=== PATIENT | male | born 1950 | race Caucasian/White ===

== ENCOUNTER 2021-05-28 02:43 | Outpatient (CLI) | payer MEDICARE, SELFPAY ==
[2021-05-28 22:49] LABS: PSA, Diagnostic 5.2 ng/mL (0.0-4.5)
== END 2021-05-28 02:44 | disposition home or self-care (01) ==
LOC: LBO 03:48
PROVIDERS: PCP Family Medicine; Visit Provider Nurse Practitioner Gerontology
DX: R97.20 Elevated prostate specific antigen [PSA] (principal); N13.8 Other obstructive and reflux uropathy; N40.1 Benign prostatic hyperplasia with lower urinary tract symptoms
CPT/HCPCS: 36415; 84153

== ENCOUNTER → 2021-06-10 09:49 | Outpatient (BNVA) | payer MEDICARE, SELFPAY | PROVIDERS: PCP Family Medicine; Referring Provider Family Medicine; Visit Provider Nurse Practitioner Gerontology | DX: N40.1 Benign prostatic hyperplasia with lower urinary tract symptoms (principal); N13.8 Other obstructive and reflux uropathy; R97.20 Elevated prostate specific antigen [PSA] | CPT/HCPCS: 99214 ==

== ENCOUNTER → 2021-10-07 12:53 | Outpatient (BNVA) | payer MEDICARE, SELFPAY | PROVIDERS: PCP Family Medicine; Referring Provider Family Medicine; Visit Provider Nurse Practitioner Gerontology | DX: N40.1 Benign prostatic hyperplasia with lower urinary tract symptoms (principal); N13.8 Other obstructive and reflux uropathy; R97.20 Elevated prostate specific antigen [PSA] | CPT/HCPCS: 99214 ==

== ENCOUNTER 2022-01-03 01:56 | Outpatient (CLI) | payer MEDICARE, SELFPAY ==
[2022-01-03 21:53] LABS: PSA, Screening 7.9 ng/mL (0.0-4.5)
== END 2022-01-03 01:57 | disposition home or self-care (01) ==
LOC: LBO 01:57
PROVIDERS: PCP Family Medicine; Visit Provider Nurse Practitioner Gerontology
DX: R97.20 Elevated prostate specific antigen [PSA] (principal); Z12.5 Encounter for screening for malignant neoplasm of prostate
CPT/HCPCS: 36415; 84153

== ENCOUNTER → 2022-01-06 10:41 | Outpatient (BNVA) | payer MEDICARE, SELFPAY | PROVIDERS: PCP Family Medicine; Referring Provider Family Medicine; Visit Provider Nurse Practitioner Gerontology | DX: N40.2 Nodular prostate without lower urinary tract symptoms (principal); N40.1 Benign prostatic hyperplasia with lower urinary tract symptoms; N13.8 Other obstructive and reflux uropathy; R97.20 Elevated prostate specific antigen [PSA] | CPT/HCPCS: 99214 ==

== ENCOUNTER → 2022-02-15 12:49 | Outpatient (BNVA) | payer MEDICARE, SELFPAY | PROVIDERS: PCP Family Medicine; Referring Provider Family Medicine; Visit Provider Nurse Practitioner Gerontology | DX: N40.1 Benign prostatic hyperplasia with lower urinary tract symptoms (principal); N13.8 Other obstructive and reflux uropathy; R97.20 Elevated prostate specific antigen [PSA] | CPT/HCPCS: 99214 ==

== ENCOUNTER 2022-08-01 02:56 | Outpatient (CLI) | payer MEDICARE, SELFPAY ==
[2022-08-01 18:40] LABS: PSA, Diagnostic 5.9 ng/mL (<=6.5)
== END 2022-08-01 02:57 | disposition home or self-care (01) ==
LOC: LBO 02:56
PROVIDERS: PCP Family Medicine; Visit Provider Nurse Practitioner Gerontology
DX: R97.20 Elevated prostate specific antigen [PSA] (principal)
CPT/HCPCS: 36415; 84153

== ENCOUNTER → 2022-08-08 14:17 | Outpatient (BNVA) | payer MEDICARE, SELFPAY | PROVIDERS: PCP Family Medicine; Referring Provider Family Medicine; Visit Provider Nurse Practitioner Gerontology | DX: N40.1 Benign prostatic hyperplasia with lower urinary tract symptoms (principal); N40.2 Nodular prostate without lower urinary tract symptoms; N13.8 Other obstructive and reflux uropathy; R97.20 Elevated prostate specific antigen [PSA] | CPT/HCPCS: 99214 ==

== ENCOUNTER 2023-01-30 01:27 | Outpatient (CLI) | payer MEDICARE, SELFPAY ==
[2023-01-30 18:07] LABS: PSA, Diagnostic 7.4 ng/mL (<=6.5)
== END 2023-01-30 01:28 | disposition home or self-care (01) ==
LOC: LBO 01:27
PROVIDERS: PCP Family Medicine; Visit Provider Nurse Practitioner Gerontology
DX: N13.8 Other obstructive and reflux uropathy (principal); N40.1 Benign prostatic hyperplasia with lower urinary tract symptoms; N40.2 Nodular prostate without lower urinary tract symptoms; R97.20 Elevated prostate specific antigen [PSA]
CPT/HCPCS: 36415; 84153

== ENCOUNTER → 2023-02-06 14:04 | Outpatient (BNVA) | payer MEDICARE, SELFPAY | PROVIDERS: PCP Family Medicine; Visit Provider Nurse Practitioner Gerontology | DX: N40.1 Benign prostatic hyperplasia with lower urinary tract symptoms (principal); N40.2 Nodular prostate without lower urinary tract symptoms; N13.8 Other obstructive and reflux uropathy | CPT/HCPCS: 51798; 99213 ==

== ENCOUNTER 2023-08-01 02:48 | Outpatient (CLI) | payer MEDICARE, SELFPAY ==
[2023-08-01 21:07] LABS: PSA, Diagnostic 4.4 ng/mL (<=6.5)
== END 2023-08-01 02:49 | disposition home or self-care (01) ==
LOC: LBO 02:48
PROVIDERS: PCP Family Medicine; Visit Provider Nurse Practitioner Gerontology
DX: N13.8 Other obstructive and reflux uropathy (principal); N40.1 Benign prostatic hyperplasia with lower urinary tract symptoms; R97.20 Elevated prostate specific antigen [PSA]
CPT/HCPCS: 36415; 84153

== ENCOUNTER → 2023-08-08 08:06 | Outpatient (BNVA) | payer MEDICARE, SELFPAY | PROVIDERS: PCP Family Medicine; Visit Provider Nurse Practitioner Gerontology | DX: N40.2 Nodular prostate without lower urinary tract symptoms (principal); R97.20 Elevated prostate specific antigen [PSA]; N40.1 Benign prostatic hyperplasia with lower urinary tract symptoms; N13.8 Other obstructive and reflux uropathy | CPT/HCPCS: 99213 ==

== ENCOUNTER 2024-01-30 04:31 | Outpatient (CLI) | payer MEDICARE, SELFPAY ==
[2024-01-30 18:26] LABS: PSA, Diagnostic 5.6 ng/mL (<=6.5)
== END 2024-01-30 04:32 | disposition home or self-care (01) ==
LOC: LBO 04:32
PROVIDERS: PCP Family Medicine; Visit Provider Nurse Practitioner Gerontology
DX: R97.20 Elevated prostate specific antigen [PSA]; N13.8 Other obstructive and reflux uropathy
CPT/HCPCS: 36415; 84153

== ENCOUNTER → 2024-02-06 08:05 | Outpatient (BNVA) | payer MEDICARE, SELFPAY | PROVIDERS: PCP Family Medicine; Visit Provider Nurse Practitioner Gerontology | DX: N40.1 Benign prostatic hyperplasia with lower urinary tract symptoms (principal); N13.8 Other obstructive and reflux uropathy; R97.20 Elevated prostate specific antigen [PSA] | CPT/HCPCS: 51798; 99213 ==

== ENCOUNTER 2024-02-08 04:50 | Outpatient (CLI) | payer MEDICARE, SELFPAY ==
[2024-02-08 09:30] LABS: Abs Immature Grans 0.01 10^3/uL (0.0-0.06); Absolute Basophil Count 0.02 10^3/uL (0.0-0.2); Absolute Eosinophil Count 0.08 10^3/uL (0.0-0.7); Absolute Lymphocyte Count 0.84 10^3/uL (1.2-3.4); Absolute Monocyte Count 0.33 10^3/uL (0.1-0.8); Absolute Neutrophil Count 2.33 10^3/uL (1.2-6.7); Basophils % 0.6; Eosinophils % 2.2; HCT 48.6 % (40.0-50.0); HGB 16.5 g/dL (13.5-17.5); Immature Grans % 0.3; Lymphocytes % 23.3; MCH 29.4 pg (27.0-33.0); MCV 87 fL (80-95); MPV 10.2 fL (8.0-11.0); Monocytes % 9.1; Neutrophils % 64.5; Platelet Count 157 10^3/uL (130-400); RBC 5.61 10^6/uL (4.36-5.78); RDW 12.3 % (11.8-14.1); RDW-SD 39.3 fL; WBC 3.61 10^3/uL (4.4-10.8)
[2024-02-08 10:21] LABS: Anion Gap 10.7 mmol/L (3-11); BUN 16 mg/dL (7-18); CO2 27.3 mmol/L (21.0-32.0); Calcium 9.6 mg/dL (8.5-10.1); Chloride 107 mmol/L (98-107); Estimated GFR 80.47 (mL/min/1.73m2); Glucose 113 mg/dL (74-106); Sodium 145 mmol/L (136-145)
== END 2024-02-08 04:51 | disposition home or self-care (01) ==
PROVIDERS: PCP Family Medicine; Visit Provider Orthopaedic Surgery
DX: M16.11 Unilateral primary osteoarthritis, right hip (principal)
CPT/HCPCS: 36415; 80048; 86850; 86900; 86901; 82040; 84153; 85025

== ENCOUNTER 2024-07-30 03:02 | Outpatient (CLI) | payer MEDICARE, SELFPAY ==
[2024-07-30 21:26] LABS: PSA, Diagnostic 7.5 ng/mL (<=6.5)
== END 2024-07-30 03:03 | disposition home or self-care (01) ==
LOC: LBO 03:02
PROVIDERS: PCP Family Medicine; Visit Provider Nurse Practitioner Gerontology
DX: N40.2 Nodular prostate without lower urinary tract symptoms (principal); R97.20 Elevated prostate specific antigen [PSA]; N40.1 Benign prostatic hyperplasia with lower urinary tract symptoms; N13.8 Other obstructive and reflux uropathy
CPT/HCPCS: 36415; 84153

== ENCOUNTER → 2024-08-06 08:04 | Outpatient (BNVA) | payer MEDICARE, SELFPAY | PROVIDERS: PCP Family Medicine; Visit Provider Nurse Practitioner Gerontology | DX: N40.2 Nodular prostate without lower urinary tract symptoms (principal); R97.20 Elevated prostate specific antigen [PSA]; N40.1 Benign prostatic hyperplasia with lower urinary tract symptoms; N13.8 Other obstructive and reflux uropathy; R39.9 Unspecified symptoms and signs involving the genitourinary system | CPT/HCPCS: 51798; 99213 ==

== ENCOUNTER → 2024-11-04 08:13 | Outpatient (BNVA) | payer MEDICARE, SELFPAY | PROVIDERS: PCP Family Medicine; Referring Provider Family Medicine; Visit Provider Nurse Practitioner Gerontology | DX: N40.1 Benign prostatic hyperplasia with lower urinary tract symptoms (principal); N40.2 Nodular prostate without lower urinary tract symptoms; N13.8 Other obstructive and reflux uropathy | CPT/HCPCS: 51798; 99213 ==

== ENCOUNTER 2025-01-29 01:59 | Outpatient (CLI) | payer MEDICARE, SELFPAY ==
[2025-01-29 18:33] LABS: PSA, Diagnostic 5.5 ng/mL (<=6.5)
== END 2025-01-29 02:00 | disposition home or self-care (01) ==
LOC: LBO 02:00
PROVIDERS: PCP Family Medicine; Visit Provider Nurse Practitioner Gerontology
DX: N40.2 Nodular prostate without lower urinary tract symptoms (principal); R97.20 Elevated prostate specific antigen [PSA]; N40.1 Benign prostatic hyperplasia with lower urinary tract symptoms; N13.8 Other obstructive and reflux uropathy
CPT/HCPCS: 36415; 84153

== ENCOUNTER → 2025-02-05 08:37 | Outpatient (BNVA) | payer MEDICARE, SELFPAY | PROVIDERS: PCP Family Medicine; Visit Provider Nurse Practitioner Gerontology | DX: N40.1 Benign prostatic hyperplasia with lower urinary tract symptoms (principal); N13.8 Other obstructive and reflux uropathy; R97.20 Elevated prostate specific antigen [PSA]; N40.2 Nodular prostate without lower urinary tract symptoms; Z84.2 Family history of other diseases of the genitourinary system | CPT/HCPCS: 99214 ==

== ENCOUNTER 2025-07-30 03:45 | Outpatient (CLI) | payer MEDICARE, SELFPAY ==
[2025-07-30 19:07] LABS: PSA, Diagnostic 5.3 ng/mL (<=6.5)
== END 2025-07-30 03:46 | disposition home or self-care (01) ==
LOC: LBO 03:48
PROVIDERS: PCP Family Medicine; Visit Provider Nurse Practitioner Gerontology
DX: N40.2 Nodular prostate without lower urinary tract symptoms (principal); R97.20 Elevated prostate specific antigen [PSA]; N40.1 Benign prostatic hyperplasia with lower urinary tract symptoms; N13.8 Other obstructive and reflux uropathy
CPT/HCPCS: 36415; 84153

== ENCOUNTER → 2025-08-06 08:36 | Outpatient (BNVA) | payer MEDICARE, SELFPAY | PROVIDERS: PCP Family Medicine; Referring Provider Family Medicine; Visit Provider Nurse Practitioner Gerontology | DX: N40.1 Benign prostatic hyperplasia with lower urinary tract symptoms (principal); N13.8 Other obstructive and reflux uropathy; R97.20 Elevated prostate specific antigen [PSA]; N40.2 Nodular prostate without lower urinary tract symptoms; G20.C Parkinsonism, unspecified | CPT/HCPCS: 99214 ==